=== PATIENT | female | born 1995 | race Caucasian/White ===

== ENCOUNTER 2022-06-04 11:00 | Emergency (ER) | payer SELFPAY ==
[~2022-06-04] VITALS: Ht 160 cm; Wt 63.5 kg
[~2022-06-04 11:00] MED LIST: TORADOL ONE
--- NOTE | 2022-06-04 11:06 | NUR ---
ARRIVAL PT ARRIVED AMBULATORY TO ED 5 WITH C/O A LAC ON HER LEFT BIG TOE. SHE ALSO IS COMING IN FOR A WOUND CHECK AND MIRIAM OUT ON A PREVIOUS LAC THAT GOT 27 MIRIAM ON HER LEFT ALVARES. VITALS TAKEN AND NOTIFIED.
--- NOTE | 2022-06-04 11:19 | NUR ---
MIHIR MON ON THE PHONE WITH DR ASH
[2022-06-04 11:20] VITALS: BP 136/73
[2022-06-04] MEDS ORDERED: TRIPLE ANTIBIOTIC OINTMENT TP STA (11:39)
[2022-06-04] MEDS ORDERED: TORADOL IM STA (11:39)
--- NOTE | 2022-06-04 11:53 | ER.PDOC ---
General Chief Complaint: Wound Recheck/Suture Removal Stated Complaint: LEFT LEG WOUND CHECK/STAPLE REMOVAL/FOOT LAC Time seen by MD: 11:00 Source: patient Exam Limitations: no limitations History of Present Illness Treated In Another ED/Practice: Yes Days Prior To Arrival: 16 Previous ED Treatment: laceration repair Antobiotics Given: IV, prescription Symptoms Since Procedure: pain Allergies: Coded Allergies: No Known Allergies (Unverified , 06/04/22) Past Medical History Medical History: no pertinent history Surgical History: no surgical history Family History Significant Family History: no pertinent family hx Social History Smoking: non-smoker Alcohol Use: occassionally Drug Use: none Reviewed Nursing Reviewed: Vital Signs, Abn. Noted, Nursing Assessment Constitutional: denies no symptoms reported, denies see HPI, denies chills, denies diaphoresis, denies fever, denies malaise, denies weakness, denies other EENTM: denies no symptoms reported, denies see HPI, denies eye pain, denies blurred vision, denies tearing, denies double vision, denies ear pain, denies ear discharge, denies nose pain, denies nose congestion, denies throat pain, denies throat swelling, denies mouth pain, denies mouth swelling, denies other Respiratory: denies no symptoms reported, denies see HPI, denies cough, denies orthopnea, denies shortness of breath, denies SOB with exertion, denies SOB at rest, denies stridor, denies wheezing, denies other Cardiovascular: denies no symptoms reported, denies see HPI, denies chest pain, denies edema, denies irregular heart rate, denies lightheadedness, denies palpitations, denies syncope, denies other Gastrointestinal: denies no symptoms reported, denies see HPI, denies abdomen distended, denies abdominal pain, denies blood streaked bowels, denies constipated, denies diarrhea, denies difficulty swallowing, denies nausea, denies poor appetite, denies poor fluid intake, denies rectal bleeding, denies vomiting, denies other Genitourinary: denies no symptoms reported, denies see HPI, denies burning, denies dysuria, denies discharge, denies frequency, denies flank pain, denies hematuria, denies incontinence, denies pain, denies urgency, denies other Musculoskeletal: denies back pain, denies gout, denies joint pain, denies joint swelling; other (left leg pain) Skin: change in color, dryness, other (skin changes) Psychiatric/Neurological: denies no symptoms reported, denies see HPI, denies anxiety, denies depressed, denies emotional problems, denies headache, denies numbness, denies paresthesia, denies pre-existing deficit, denies seizure, denies tingling, denies tremors, denies weakness, denies other Endocrine: denies no symptoms reported, denies see HPI, denies excessive sweating, denies flushing, denies intolerance to cold, denies intolerance to he at, denies increased hunger, denies increased thrist, denies increased urine, denies unexplained weight gain, denies unexplaned weight loss, denies other Hematologic/Lymphatic: denies no symptoms reported, denies see HPI, denies anemia, denies blood clots, denies easy bleeding, denies easy bruising, denies swollen glands, denies other Physical Exam General Appearance: alert, no distress Neuro/Vascular/Tendon: no vascular compromise, sensation nml, no tendon injury, nml ROM Skin: warmth ( top layer of skin with granulation tissues around - lle) Head/ENT: nml inspection, pharynx nml Neck/Back: nml inspection, non-tender, painless ROM Respiratory: chest non-tender, no resp. distress, breath sounds nml CVS: reg. rate & rhythm, heart sounds nml Abdomen: non-tender, no organomegaly Additional Procedures Progress Suture and staple removal removed 27 holly uneventfully and removed 6 sutures uneventfully Results/Orders Results/Orders Orders - DION MON MD Ketorolac Tromethamine (Toradol) (06/04/22 11:39) Neomycin/Bacitracin/Polymyxinb (Triple A (06/04/22 11:39) Vital Signs Date Time Temp Pulse Resp B/P (MAP) Pulse Ox O2 Delivery O2 Flow Rate FiO2 06/04/22 11:20 98.4 103 18 136/73 (94) 100 Room Air* 0 21 06/04/22 11:20 98.4 103 18 100 06/04/22 11:20 98.4 103 18 Administered Medications Medications (Trade) Dose Ordered Sig/Marcia Route PRN Reason Start Time Stop Time Status Last Admin Dose Admin Ketorolac Tromethamine (Toradol) 15 mg OT STAT IM 06/04/22 11:39 06/04/22 11:42 DC 06/04/22 11:39 15 MG Progress Progress HPI comments here as there is not a place earlier in the note. Patient is a 27-year-old female with a past medical history of a recent laceration to her left lower extremity 16 days ago when she fell onto an automatic dog feeder in a car just a significant laceration. Patient ultimately had that laceration stapled and sutured by an ER doctor and then it ultimately got infected and she had to be admitted to the hospital for IV antibiotics she comes in after stopping her left toe today for evaluation and also a wound evaluation. Patient endorses a sharp pain that is made worse with movement and palpation better with rest. Patient denies any fevers or any constitutional symptoms. However patient does state that she has associated symptoms of mild warmth and erythema surrounding the wound with a change in the color to a blackish color. Planwas able to remove the sutures uneventfully. As well as remove the 27 holly also of note to the wound looks like the top layer of tissue has not was concerned thus I sent pictures to Dr. HamiltonWhatif stated that she will see the patient in clinic on Monday. According to pictures patient has not found the leg has much improvement from when she was discharged from the hospital and things seem to be getting better. Those pictures however it does look like the top layer of tissue has thus patient will follow-up on Monday with Dr. Alfonso Camara is aware and will discharge patient with information on that. [id number] remainsHemodynamically stable without any new comp laints. Was able to give patient some pain relief with ketorolac.Because patient had had such a quick moved from [place] to [facility] discussed with patient once happened she said because of her boyfriend she was getting away from however after extensive discussion in front of [employer] [place] patient states that she feels very safe here. ER DEPART Departure Time of Disposition: 11:53 Disposition: 01 HOME / SELF CARE / HOMELESS Impression: Primary Impression: Encounter for wound re-check Condition: Improved Patient Instructions: Sutured Wound Care Referrals: PCP,UNKNOWN (PCP) PRIMARY CARE PROVIDER Additional Instructions: As we discussed you must follow-up with Dr. Hamilton who is the surgeon on Monday. Please call to make that appointment she can be reached at [phone]. If you have any new persistent or worsening symptoms or concerns please seek emergent medical attention.Also follow-up with your primary care provider within 1 week. If you need a primary care provider you can call Dr. Blue at [phone] as well Duration or Time Spent with Pa: 45 DION MON MD Jun 04, 2022 11:53
[2022-06-04 12:00] VITALS: BP 124/87
== END 2022-06-04 12:02 | disposition home or self-care (01) ==
LOC: ER 11:00
DX: Z48.00 Encounter for change or removal of nonsurgical wound dressing (principal)
CPT/HCPCS: 99283; 96372; J1885